=== PATIENT | male | born 2000 | race Caucasian/White ===

== ENCOUNTER 2020-09-20 11:40 | Emergency (ER) | payer OTHER ==
[~2020-09-20] VITALS: Ht 172.7 cm; Wt 77.4 kg
[2020-09-20 11:41] VITALS: BP 133/78
[2020-09-20] MEDS ORDERED: NAPR-837 PO (12:10)
== END 2020-09-20 12:26 | disposition home or self-care (01) ==
LOC: M ED 11:40
DX: S83.92XA Sprain of unspecified site of left knee, initial encounter (principal); M25.462 Effusion, left knee; X50.1XXA Overexertion from prolonged static or awkward postures, initial encounter; Y92.89 Other specified places as the place of occurrence of the external cause; Y93.9 Activity, unspecified; Y99.1 Military activity